=== PATIENT | female | born 1975 | race Caucasian/White ===

== ENCOUNTER 2022-06-04 09:02 | Outpatient (CLI) | payer OTHER, SELFPAY ==
--- NOTE | 2022-06-04 09:15 | CRLHL7_ITS ---
For Patients: As a result of the Century Cures Act, medical imaging exams and procedure reports are released immediately into your electronic medical record. You may view this report before your referring provider. If you have questions, please contact your health care provider. BILATERAL DIGITAL SCREENING MAMMOGRAM WITH TOMOSYNTHESIS AND COMPUTER-AIDED DETECTION CLINICAL HISTORY: Routine screening exam. COMPARISON: 01/31/2020, 01/25/2020, 01/10/2019. TECHNIQUE: Digital mammogram in CC and MLO projections including computer-aided detection (CAD). Tomosynthesis utilized. BREAST COMPOSITION: The breasts are extremely dense, which may limit the sensitivity of mammography. FINDINGS: RIGHT Breast: No suspicious findings. LEFT Breast: Asymmetric density within the lateral LEFT breast 3 cm from the nipple, slightly inferior, approximately 4 o`clock. IMPRESSION: LEFT breast asymmetry/mass. RECOMMENDATIONS: Additional mammographic views of the LEFT breast including 3D spot compression CC/MLO. LEFT breast ultrasound may also be required. BI-RADS Category 0: Incomplete: Need Additional Imaging Evaluation and/or Prior Mammograms for Comparison [facility] will contact the patient for follow-up. A lay language report of this examination will be provided to the patient. Dictated by Brian Colorado MD @ 06/04/2022 12:10:41 PM letitiaj/Dictated by: Brian Colorado MD @ 06/04/2022 12:10:00 PM (Electronically Signed)
== END 2022-06-04 09:03 | disposition home or self-care (01) ==
PROVIDERS: Visit Provider Registered Nurse
DX: Z12.31 Encounter for screening mammogram for malignant neoplasm of breast (principal); N63.20 Unspecified lump in the left breast, unspecified quadrant
CPT/HCPCS: 77063; 77067

== ENCOUNTER 2022-06-10 10:30 | Outpatient (CLI) | payer OTHER, SELFPAY ==
--- NOTE | 2022-06-10 10:45 | CRLHL7_ITS ---
For Patients: As a result of the Cures Act, medical imaging exams and procedure reports are released immediately into your electronic medical record. You may view this report before your referring provider. If you have questions, please contact your health care provider. DIGITAL DIAGNOSTIC LEFT MAMMOGRAM USING TOMOSYNTHESIS AND COMPUTER-AIDED DETECTION LEFT BREAST ULTRASOUND INDICATION: Follow up a LEFT breast asymmetry. TECHNIQUE: Views LEFT breast in the CC and MLO projection. Tomosynthesis and CAD utilized. LEFT breast ultrasound. COMPARISON: 06/04/2022. FINDINGS: Breast Composition: The breast is heterogeneously dense, which may obscure small masses. Within the outer LEFT breast between the 3 and 4 o`clock position is a persistent lobulated density. Ultrasound is recommended for further evaluation and will be performed subsequently. Please see ultrasound report from the same date below. IMPRESSION: Persistent asymmetries in the mid outer LEFT breast for which ultrasound is recommended. ULTRASOUND: Directed LEFT breast ultrasound with this radiologist present. At the 3 o`clock position 2 cm from the nipple is a dominant oval-shaped cyst measuring 2.8 x 1.2 x 2.0 cm. This has a small slender incomplete septation. There are numerous additional much smaller cysts nearby. These findings were discussed in detail with the patient. No further workup or follow-up is recommended. Ultrasound-guided cyst aspiration is not required. Annual mammography is recommended. BI-RADS Category 2: Benign A lay language report of this examination will be provided to the patient. Dictated by: Clarence Hyde MD @06/10/2022 12:22:31 PM letitiaj/Dictated by: Clarence Hyde MD @ 06/10/2022 12:15:00 PM (Electronically Signed)
--- NOTE | 2022-06-10 11:15 | CRLHL7_ITS ---
For Patients: As a result of the Cures Act, medical imaging exams and procedure reports are released immediately into your electronic medical record. You may view this report before your referring provider. If you have questions, please contact your health care provider. PLEASE SEE DIGITAL DIAGNOSTIC LEFT MAMMOGRAM PERFORMED SAME DAY [email or web address] gardiner/Dictated by: Clarence Hyde MD @ 06/10/2022 12:22:00 PM (Electronically Signed)
== END 2022-06-10 10:31 | disposition home or self-care (01) ==
LOC: MAMMO 10:30
PROVIDERS: Visit Provider Registered Nurse
DX: R92.8 Other abnormal and inconclusive findings on diagnostic imaging of breast (principal); N60.02 Solitary cyst of left breast
CPT/HCPCS: 76642; 77065; G0279

== ENCOUNTER 2023-07-20 14:29 | Outpatient (CLI) | payer OTHER, SELFPAY ==
--- NOTE | 2023-07-20 14:40 | CRLHL7_ITS ---
For Patients: As a result of the Century Cures Act, medical imaging exams and procedure reports are released immediately into your electronic medical record. You may view this report before your referring provider. If you have questions, please contact your health care provider. BILATERAL SCREENING MAMMOGRAM WITH COMPUTER-AIDED DETECTION AND TOMOSYNTHESIS TECHNIQUE: CC and MLO views were obtained. These mammographic images have been obtained using full-field digital technique. These mammographic images were interpreted with the benefit of computer-aided detection. Breast Tomosynthesis was used in this interpretation. COMPARISON FILM: 06/04/22, 05/16/21, 01/25/20. FINDINGS: The breasts are extremely dense, which lowers the sensitivity of mammography IMPRESSION: There is no radiographic evidence for malignancy. ASSESSMENT: BI-RADS Category 1: Negative RECOMMENDATION: Routine screening mammogram in 1 year. A lay language report of this examination will be provided to the patient. Brian Colorado M.D. Diagnostic Radiologist [email or web address] Transcribed: 2:51 p.mSerafin gardiner/Dictated by: Brian Colorado MD @ 07/23/2023 1:12:00 PM (Electronically Signed)
== END 2023-07-20 14:30 | disposition home or self-care (01) ==
LOC: MAMMO 14:30
PROVIDERS: Visit Provider Registered Nurse
DX: Z12.31 Encounter for screening mammogram for malignant neoplasm of breast (principal); R92.2 Inconclusive mammogram
CPT/HCPCS: 77063; 77067

== ENCOUNTER 2023-10-28 08:01 | Outpatient (CLI) | payer OTHER, SELFPAY ==
--- NOTE | 2023-10-28 09:12 | W.ANESCHARGE ---
Anesthesia Charges Start Date/Time Anesthesia Start Date: 10/28/23 Anesthesia Start Time: 08:40 Stop Date/Time Anesthesia Stop Date: 10/28/23 Anesthesia Stop Time: 09:13
--- NOTE | 2023-10-28 09:16 | W.ANESCHARGE ---
Anesthesia Charges Start Date/Time Anesthesia Start Date: 10/28/23 Anesthesia Start Time: 08:40 Stop Date/Time Anesthesia Stop Date: 10/28/23 Anesthesia Stop Time: 09:13
== END 2023-10-28 08:02 | disposition home or self-care (01) ==
LOC: OP CLINIC 08:03
PROVIDERS: Visit Provider Surgery
DX: Z12.11 Encounter for screening for malignant neoplasm of colon (principal); D12.0 Benign neoplasm of cecum; D12.4 Benign neoplasm of descending colon; Z80.0 Family history of malignant neoplasm of digestive organs
CPT/HCPCS: 00811; 45385; 88305; J2704

== ENCOUNTER 2024-11-29 08:58 | Outpatient (CLI) | payer OTHER, SELFPAY ==
--- NOTE | 2024-11-29 09:15 | CRLHL7_ITS ---
For Patients: As a result of the Century Cures Act, medical imaging exams and procedure reports are released immediately into your electronic medical record. You may view this report before your referring provider. If you have questions, please contact your health care provider. INDICATION: BILATERAL SCREENING MAMMOGRAM, ASYMPTOMATIC 49 Y/O FEMALE COMPARISON: 07/20/2023, 06/10/2022, 06/04/2022 TECHNIQUE: Digital mammogram in CC and MLO projections including computer-aided detection (CAD) and tomosynthesis. BREAST COMPOSITION: The breasts are heterogeneously dense, which may obscure small masses. FINDINGS: No suspicious findings. ASSESSMENT: BI-RADS 2 Benign RECOMMENDATION: Annual screening mammogram. A lay language report of this examination will be provided to the patient. Dictated by: Nia Melendez MD @ 11/30/2024 13:45:47 (Electronically Signed)
== END 2024-11-29 08:59 | disposition home or self-care (01) ==
LOC: MAMMO 08:58
PROVIDERS: Visit Provider Registered Nurse
DX: Z12.31 Encounter for screening mammogram for malignant neoplasm of breast (principal); R92.333 Mammographic heterogeneous density, bilateral breasts; Z13.6 Encounter for screening for cardiovascular disorders
CPT/HCPCS: 77063; 77067; 80061

== ENCOUNTER 2024-11-29 10:17 | Outpatient (CLI) | payer OTHER, SELFPAY | END 2024-11-29 10:18 | disposition home or self-care (01) | LOC: NFLDREF 10:17 | PROVIDERS: Visit Provider Registered Nurse | DX: Z13.6 Encounter for screening for cardiovascular disorders (principal) | CPT/HCPCS: 80061 ==